=== PATIENT | male | born 1960 | race Caucasian/White ===

== ENCOUNTER 2016-10-08 17:29 | Emergency (ER) | payer BC ==
--- NOTE | 2016-10-18 16:41 | ER ---
ADMIT: 10/08/2016 RM/LOC: ER [facility] MR#: [id number] [facility] [id number] [place], [place] [id number] KATLYN LÓPEZ [address] [place] [address] Emergency Room Report SEX: M AGE: 56 : 1960 DATE: 10/08/2016 A 56-year-old gentleman, who had arthroscopy done on left knee 7 days ago in [place], [place] who comes to the Emergency Department with swelling and pain in the left knee. See T-sheet for history and physical. Doppler is negative. Lab work is unremarkable. Does have a large knee effusion. Tapping versus wrapping. He elected to wrap at this times, so he will follow up with his orthopedist in [place], [place]. DIAGNOSIS: Postsurgical knee effusion. Jerel Lacey MD/ joy JOB #: [id number] CC: Eduardo Montenegro MD, Attending Physician UNKNOWN, Family Physician
== END 2016-10-08 19:31 | disposition home or self-care (01) ==
LOC: ER 17:29
DX: M25.462 Effusion, left knee (principal); Z79.82 Long term (current) use of aspirin; Z79.899 Other long term (current) drug therapy; Z90.49 Acquired absence of other specified parts of digestive tract; Z98.890 Other specified postprocedural states